=== PATIENT | male | born 1950 | race Caucasian/White ===

== ENCOUNTER 2018-02-23 14:00 | Inpatient (IN) | payer MEDICARE, BC ==
[~2018-02-23] VITALS: Ht 172.7 cm; Wt 89.8 kg
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
[2018-02-23] MEDS ORDERED: LIDOCAINE 1%-EPI 1:100,000 20 ML VIAL ONE (14:23)
[2018-02-23 14:25] LABS: BASOPHILS # (AUTO) 0.6 /CMM (0.0-0.2); BASOPHILS % (AUTO) 3.8 % (0.0-2.0); EOSINOPHILS % (AUTO) 0.6 % (0.0-6.0); HEMATOCRIT 29 % (39-51); HEMOGLOBIN 10.6 g/dL (13.5-17.5); LYMPHOCYTES # (AUTO) 1.4 /CMM (0.8-4.8); LYMPHOCYTES % (AUTO) 9.7 % (20.0-44.0); MEAN CORPUSCULAR HGB CONC 36 g/dl (31.0-36.0); MEAN CORPUSCULAR VOLUME 89 fL (80-96); MONOCYTES # (AUTO) 0.9 /CMM (0.1-1.30); MONOCYTES % (AUTO) 6.5 % (2.0-12.0); NEUTROPHILS # (AUTO) 11.5 /CMM (1.8-8.9); NEUTROPHILS % (AUTO) 79.4 % (43.0-81.0); PLATELET COUNT (AUTO) 208 /CMM (150-450); RDW COEFFICIENT OF VARIATION 15.4 (11.5-15.0); RED BLOOD CELL COUNT(AUTO) 3.31 MIL/uL (4.5-6.0); WHITE BLOOD COUNT (AUTO) 14.5 K/uL (4.3-11.0)
[2018-02-23] MEDS ORDERED: LIDOCAINE 1%-EPI 1:100,000 20 ML VIAL TP ONE (14:30)
[2018-02-23] MEDS ORDERED: IV NS 0.9% 1,000 ML BAG IV ONE (14:30)
[2018-02-23 14:32] LABS: CALCIUM, SERUM 9.9 mg/dL (8.5-10.1); CARBON DIOXIDE 24 mmol/L (21-32); CHLORIDE 103 mmol/L (98-107); CREATININE 5.1 mg/dL (0.6-1.3); GLUCOSE 105 mg/dL (74-106); SODIUM SERUM 139 mmol/L (136-145); UREA NITROGEN, BLOOD 46 mg/dL (7-18)
[2018-02-23 14:33] LABS: POTASSIUM 5.2 mmol/L (3.5-5.1)
[2018-02-23 14:38] LABS: ALANINE AMINOTRANSFERASE 21 U/L (12-78); ALBUMIN 3.2 g/dL (3.4-5.0); ALKALINE PHOSPHATASE 73 U/L (46-116); ASPARTATE AMINOTRANSFERASE 30 U/L (15-37); BILIRUBIN,DIRECT 0.1 mg/dL (0.0-0.2); BILIRUBIN,TOTAL 0.8 mg/dL (0.2-1.0); TOTAL PROTEIN, SERUM 8.1 g/dL (6.4-8.2)
[2018-02-23 14:40] LABS: TROPONIN I < 0.017 ng/mL (0.00-0.056)
--- NOTE | 2018-02-23 15:20 | NUR ---
URINE SAMPLE OBTAINED, SENT.
--- NOTE | 2018-02-23 15:30 | NUR ---
CALLED NURSING SUP. FOR TELE BED
[2018-02-23 15:49] LABS: APPEARANCE,URINE Clear (CLEAR); BILIRUBIN,URINE Negative (NEGATIVE); BLOOD, URINE Trace-lysed Ery/uL (NEGATIVE); COLOR,URINE Yellow (YELLOW); KETONES,URINE 15 (NEGATIVE); LEUKOCYTE ESTERASE ,URINE Negative (NEGATIVE); NITRITE, URINE Negative (NEGATIVE); PH,URINE 8.5 (5.0-8.0); PROTEIN,URINE 100 mg/dl (NEGATIVE); UGLUCOSE Negative (NEGATIVE)
[2018-02-23 16:05] LABS: BACTERIA,URINE Rare /HPF (None Seen); RBC,URINE 0-2 /HPF (0-2); SQUAMOUS EPITHELIAL CELL,UR Rare /HPF (None Seen); WBC,URINE 0-2 /HPF (0-3)
--- NOTE | 2018-02-23 16:22 | NUR ---
TELE 327-2 JACKLYN JOHANSEN ADMITTING
[2018-02-23] MEDS ORDERED: HYDROCODONE/APAP 5/325MG 1 EACH TABLET PO PRN (16:30)
[2018-02-23] MEDS ORDERED: MAGNESIUM HYDROXIDE 30 ML UDC PO PRN (16:30)
[2018-02-23] MEDS ORDERED: MAG HYDROX/AL HYDROX/SIMETH 30 ML UDC PO PRN (16:30)
[2018-02-23] MEDS ORDERED: Z GUARD REMEDY 2 OZ OINT TP PRN (16:30)
[2018-02-23] MEDS ORDERED: ONDANSETRON HCL/PF 4 MG/2 ML VIAL IVP PRN (16:30)
[2018-02-23] MEDS ORDERED: ZOLPIDEM TARTRATE 5 MG TABLET PO PRN (16:30)
[2018-02-23] MEDS ORDERED: ACETAMINOPHEN 325 MG TABLET PO PRN (16:30)
--- NOTE | 2018-02-23 16:43 | NUR ---
REPORT GIVEN TO HAILY GREEN FOR TELE 327-2.
[2018-02-23 17:00] VITALS: BP 135/69
--- NOTE | 2018-02-23 17:00 | NUR ---
CARDIAC REHAB NURSE NOTES ADMITTED PATIENT FROM ER REPORT GIVEN BY ARJUN ACCOMPANIED BY DAUGHTER. NO ACUTE DISTRESS NOTED. BREATHING UNLABORED. IV ACCESS PATENT AND INTACT. NEEDS ATTENDED. ORIENTED TO THE ROOM. SAFETY MEASURES IN PLACE. CALL LIGHT WITHIN REACH, SHOW HOW TO USE CALL LIGHT. WILL CONTINUE TO MONITOR ACCORDINGLY.
[2018-02-23 17:30] VITALS: BP 145/71
[2018-02-23] MEDS: IV NS 0.9% 1,000 ML IV PRN (18:18)
--- NOTE | 2018-02-23 19:00 | NUR ---
MS RN CLOSING NOTES PATIENT IN BED ALERT ORIENTED X4 , DAUGHTER AT BEDSIDE. NO ACUTE DISTRESS NOTED. NO SOB NOTED. IV ACCESS PATENT AND INTACT, NO REDNESS OR SWELLING NOTED.NEEDS ATTENDED AND ANTICIPATED. SAFETY MEASURES IN PLACE. CALL LIGHT WITHIN REACH. WILL COME PER DAUGHTER WILL BRING ADVANCE DIRECTIVE. ENDORSED TO NIGHT NURSE FOR CONTINUITY OF CARE.
--- NOTE | 2018-02-23 19:40 | NUR ---
JUKE BOX MECHANIC OPENING NOTES RECEIVED PATIENT IN BED , AWAKE ALERT AND ORIENTED X3 ABLE TO MAKE NEEDS KNOWN, RESPIRATIONS EVEN AND UNLABORED, DENIES ANY PAIN OR DISCOMFORT AT THIS TIME, ON MEDICAL INSURANCE VERIFIER SR70, LEFT ARM SHUNT WITH BRUIT PRESENT,IV SITE TO RIGHT AC INTACT AND PATENT, NO REDNESS NO INFILTRATION PRESENT, IVF RUNNING AT 75 ML/HR ORDERED, ORIENTED TO ROOM,STAFF,SAFETY MEASURES IN PLACE,CALL LIGHT KEPT WITHIN REACH.WILL CONTINUE TO MONITOR.
[2018-02-23 20:00] VITALS: BP_SYST 126; BP_SYST 146; BP_DIAS 62; BP_DIAS 78
--- NOTE | 2018-02-23 20:00 | NUR ---
WIRE BASKET MAKER NOTES NEURO CHECK DONE PATIENT ASSESSED LOC - FULL CONSCIOUSNESS,PERRLA -PUPILS REACTIVE, PATIENT SPEECH CLEAR, NO FACIAL ASYMMETRY, PATIENT REACTIVE TO LIGHT TOUCH, NO NUMBNESS, LOWER EXTREMITIES WNL , NO DEFICITS NOTES UPON ASSESSMENT.
--- NOTE | 2018-02-23 22:00 | NUR ---
NET LEAD DEVELOPER NOTES PER FAMILY AND PATIENT UTILIZED CPAP AT HOME DURING SLEEP , PER USES HIGH PRESSURE AT HOME. CALLED AND SPOKE TO DR. RUSH TO NOTIFY WITH NEW ORDERS CPAP 10 RATE 14. WILL CONTINUE TO MONITOR
--- NOTE | 2018-02-23 22:55 | NUR ---
RT NOTE PT UNABLE TO KENY CPAP. RN TOOK PT OFF CPAP. WILL CONTINUE TO MONITOR. Addendum: 02/23/18 at 2256 by CASSANDRA FAIRBANKS RT Amended: Links added.
--- NOTE | 2018-02-23 22:55 | NUR ---
MANAGER FAMILY NOTES PER PATIENT UNABLE TO TOLERATE CPAP PREFERS TO HAVE IT OFF AT THIS TIME, WILL CONTINUE TO MONITOR.
[2018-02-24] VITALS (9 sets, daily range): BP systolic 103–158; BP diastolic 51–84
[2018-02-24] MEDS: IV NS 0.9% 1,000 ML IV PRN (05:56)
--- NOTE | 2018-02-24 06:39 | NUR ---
DATAWAREHOUSE DEVELOPER CLOSING NOTES PATIENT IN BED , AWAKE ALERT AND ORIENTED X3 ABLE TO MAKE NEEDS KNOWN, RESPIRATIONS EVEN AND UNLABORED, DENIES ANY PAIN OR DISCOMFORT AT THIS TIME, ON MEAT PRODUCTS DEMONSTRATOR SR82, LEFT ARM SHUNT WITH BRUIT PRESENT,IV SITE TO RIGHT AC INTACT AND PATENT, NO REDNESS NO INFILTRATION PRESENT, IVF RUNNING AT 75 ML/HR ORDERED, PATIENT ASSISTED TO BATHROOM NOTED TO HAVE SMALL BOWEL MOVEMENT , ASSISTED TO BED, REMAINS COMFORTABLE ,SAFETY MEASURES IN PLACE,CALL LIGHT KEPT WITHIN REACH.WILL CONTINUE TO MONITOR AND ENDORSE TO NEXT SHIFT.ADVANCE DIRECTIVE IN CHART.
[2018-02-24 06:45] LABS: HEMATOCRIT 29 % (39-51); LYMPHOCYTES # (AUTO) 1.5 /CMM (0.8-4.8); LYMPHOCYTES % (AUTO) 12.4 % (20.0-44.0); MEAN CORPUSCULAR HGB CONC 34 g/dl (31.0-36.0); MEAN CORPUSCULAR VOLUME 90 fL (80-96); MONOCYTES % (AUTO) 8.5 % (2.0-12.0); NEUTROPHILS # (AUTO) 9.5 /CMM (1.8-8.9); NEUTROPHILS % (AUTO) 77.1 % (43.0-81.0); PLATELET COUNT (AUTO) 222 /CMM (150-450); RDW COEFFICIENT OF VARIATION 15.9 (11.5-15.0); RED BLOOD CELL COUNT(AUTO) 3.26 MIL/uL (4.5-6.0); WHITE BLOOD COUNT (AUTO) 12.3 K/uL (4.3-11.0)
[2018-02-24 06:54] LABS: BILIRUBIN,TOTAL 0.5 mg/dL (0.2-1.0); CALCIUM, SERUM 9.3 mg/dL (8.5-10.1); CREATININE 4.5 mg/dL (0.6-1.3); MAGNESIUM 2.3 mg/dL (1.8-2.4); POTASSIUM 3.7 mmol/L (3.5-5.1); TOTAL PROTEIN, SERUM 7.4 g/dL (6.4-8.2)
[2018-02-24 06:57] LABS: THYROID STIMULATING HORMONE 1.463 uIU/mL (0.358-3.74)
--- NOTE | 2018-02-24 07:31 | NUR ---
FORMS ANALYST NOTES PATIENT RECEIVED RESTING INSIDE ROOM, ACCOMPANIED BY . PATIENT AWAKE, ALERT AND ORIENTED, VERBALLY RESPONSIVE AND RESPONDS TO VERBAL AND TACTILE STIMULI. ABLE TO MAKE NEEDS KNOWN AND FOLLOW SIMPLE INSTRUCTIONS. BREATHING EVEN AND UNLABORED. DENIES ANY PAIN OR DISCOMFORT AT THIS TIME. NO CHANGES IN LOC NOTED AT THIS TIME. PATIENT SKIN DRY AND WARM TO TOUCH. IV SITE INTACT AND PATENT, NS RUNNING AT 75CC/HR. WILL CONTINUE TO MONITOR. BED LOCKED AND IN LOW POSOTION. BILATERAL UPPER SIDE RAILS UP AND LOCKED. CALL LIGHT WITHIN EASY REACH
[2018-02-24 09:55] LABS: OCCULT BLOOD STOOL NEGATIVE (NEGATIVE)
[2018-02-24] MEDS ORDERED: POLYETHYLENE GLYCOL 3350 17 GM POWD.PACK PO PRN (11:30)
[2018-02-24] MEDS ORDERED: IV NS 0.9% 500 ML IV ONE ×2 (11:30→18:00)
[2018-02-24] MEDS ORDERED: HYDR-4077 PO (12:18)
[2018-02-24] MEDS ORDERED: LORA10TA68 PO (12:18)
[2018-02-24] MEDS ORDERED: MULT-594 PO (12:18)
[2018-02-24] MEDS ORDERED: ASPI-1169 PO (12:18)
[2018-02-24] MEDS ORDERED: CLON0.1T PO (12:18)
[2018-02-24] MEDS ORDERED: ESCI20TA PO (12:18)
[2018-02-24] MEDS ORDERED: CLON0.2T PO (12:18)
[2018-02-24] MEDS ORDERED: ATOR40TA PO (12:18)
[2018-02-24] MEDS ORDERED: CARV25TA PO (12:18)
[2018-02-24] MEDS ORDERED: AMLO5TAB4 PO (12:18)
[2018-02-24] MEDS ORDERED: IV NS 0.9% 500 ML BAG IV ONE (17:30)
--- NOTE | 2018-02-24 18:23 | NUR ---
RAIL SPECIALIST NOTES PATIENT RESTING INSIDE ROOM. ACCOMPANIED BY . PATIENT AWAKE, ALERT AND ORIENTED, ABLE TO MAKE NEEDS KNOWN AND FOLLOW SIMPLE INSTRUCTIONS. VERBALLY RESPONSIVE AND RESPONDS TO VERBAL AND TACTILE STIMULI. PATIENT BREATHING EVEN AND UNLABORED. NO SOB OR ACUTE DISTRESS NOTED. IV SITE ON RIGHT AC INTACT AND PATENT, NO BLEEDING OR SWELLING NOTED. CONTINUE WITH TELEMETRY, NSR 86 BMP. PATIENT REMAINS AFEBRILE, SKIN DRY AND WARM TO TOUCH. NO CHANGES IN LOC NOTED. ORTHOSTATIC BP TO CHECK AFTER NS 100CC/HR X 500CC. WILL ENDORSE TO INCOMING SHIFT FOR STEFANO. BED LOCKED AND IN LOW POSITION. BILATERAL UPPER SIDE RAILS UP AND LOCKED. CALL LIGHT WITHIN EASY REACH.
--- NOTE | 2018-02-24 19:45 | NUR ---
RN OPENING TELE NOTES RECEIVED PATIENT IN BED, AWAKE ALERT AND ORIENTED X 4 ABLE TO MAKE NEEDS KNOWN, DENIES ANY PAIN OR DISCOMFORT AT THIS TIME, RESPIRATIONS EVEN AND UNLABORED. IV SITE TO RIGHT AC 20GAUGE INTACT AND PATENT, NO REDNESS NO INFILTRATION PRESENT, IVF FLUIDS RUNNING ORDERED, ORIENTED TO STAFF, CALL LIGHT KEPT WITHIN REACH, SAFETY MEASURES IN PLACE WILL CONTINUE TO MONITOR.
[2018-02-25] VITALS: BP 158/81
--- NOTE | 2018-02-25 02:39 | NUR ---
ADVANCE AGENT NOTES ORTHOSTATIC HYPOTENSION LAYING-158/81 HR 85 SIT-157/84 HR 86 STAND-142/63 90 CALLED TO NOTIFY VICTOR MANUEL SUNG OF WITH NO NEW ORDERS AT THIS TIME.
--- NOTE | 2018-02-25 02:41 | NUR ---
HL7 INTERFACE DEVELOPER NOTES NOTED RIGHT AC IV SITE NOT PROPERLY WORKING, REMOVED,NO REDNESS , NO PAIN TO SITE ,ASKED PATIENT IF I CAN REINSERT IV SITE AT THIS TIME, WOULD LIKE TO BE PUT IN THE AM. WILL CONT TO FOLLOW UP
[2018-02-25 04:00] VITALS: BP 159/79
--- NOTE | 2018-02-25 06:46 | NUR ---
MECHANICAL INSPECTOR NOTES OFFERED TO REINSERT IV SITE, PATIENT REFUSED STATED " I WANT TO GO HOME" , REFUSED INSERTION. WILL CONTINUE TO MONITOR AND ENDORSE TO NEXT SHIFT.
--- NOTE | 2018-02-25 07:00 | NUR ---
RN CLOSING TELE NOTES PATIENT IN BED, AWAKE ALERT AND ORIENTED X 4 ABLE TO MAKE NEEDS KNOWN, DENIES ANY PAIN OR DISCOMFORT AT THIS TIME, RESPIRATIONS EVEN AND UNLABORED. IV SITE TO RIGHT AC WAS REMOVED DUE TO NOT WORKING ATTEMPTED TO REINSERT PATIENT REFUSED, NO REDNESS NO INFILTRATION PRESENT TO SITE CALL LIGHT KEPT WITHIN REACH, SAFETY MEASURES IN PLACE WILL CONTINUE TO MONITOR AND ENDORSE TO NEXT SHIFT
--- NOTE | 2018-02-25 07:30 | NUR ---
RN NOTES PATIENT A/OX4, AT BEDSIDE, DENIES PAIN OR DISCOMFORT AT THIS TIME, BREATHING EVEN AND UNLABORED, NEEDS ATTENDED, SAFETY MEASURES IN PLACED, CALL LIGHT WITHIN REACH, WILL CONTINUE TO MONITOR.
[2018-02-25 07:33] LABS: BASOPHILS % (AUTO) 0.3 % (0.0-2.0); EOSINOPHILS % (AUTO) 3.3 % (0.0-6.0); HEMATOCRIT 32 % (39-51); HEMOGLOBIN 10.5 g/dL (13.5-17.5); LYMPHOCYTES # (AUTO) 1.2 /CMM (0.8-4.8); LYMPHOCYTES % (AUTO) 12.7 % (20.0-44.0); MEAN CORPUSCULAR HGB CONC 33 g/dl (31.0-36.0); MEAN CORPUSCULAR VOLUME 90 fL (80-96); MONOCYTES # (AUTO) 0.7 /CMM (0.1-1.30); MONOCYTES % (AUTO) 7.6 % (2.0-12.0); NEUTROPHILS % (AUTO) 76.1 % (43.0-81.0); PLATELET COUNT (AUTO) 221 /CMM (150-450); RDW COEFFICIENT OF VARIATION 15.9 (11.5-15.0); RED BLOOD CELL COUNT(AUTO) 3.52 MIL/uL (4.5-6.0); WHITE BLOOD COUNT (AUTO) 9.2 K/uL (4.3-11.0)
[2018-02-25 07:40] LABS: CALCIUM, SERUM 9.2 mg/dL (8.5-10.1); CREATININE 3.6 mg/dL (0.6-1.3); PHOSPHORUS 1.9 mg/dL (2.5-4.9); POTASSIUM 3.4 mmol/L (3.5-5.1)
[2018-02-25 08:00] VITALS: BP 167/86
[2018-02-25] MEDS ORDERED: ASPIRIN 81 MG TAB.CHEW PO SCH (09:00)
[2018-02-25] MEDS ORDERED: MULTIVITAMINS,THERAGRAN 1 UDTAB TABLET PO SCH (09:00)
[2018-02-25] MEDS ORDERED: ESCITALOPRAM OXALATE (10 MG) 10 MG TABLET PO SCH (09:00)
[2018-02-25] MEDS ORDERED: ATORVASTATIN 40 MG TABLET PO SCH (09:00)
[2018-02-25] MEDS ORDERED: LORATADINE 10 MG TABLET PO SCH (09:00)
[2018-02-25] MEDS ORDERED: CARVEDILOL 12.5 MG TABLET PO SCH (10:00)
--- NOTE | 2018-02-25 10:00 | NUR ---
RN NOTES PATIENT WENT TO RESTROOM WITH SLOW BUT STEADY GAIT, AND WAS ABLE TO MOVE HIS BOWELS.
[2018-02-25 10:08] VITALS: BP 167/86
[2018-02-25] MEDS ORDERED: CARVEDILOL 25 MG TABLET PO SCH (10:30)
[2018-02-25] MEDS ORDERED: CLON0.1T PO (10:41)
[2018-02-25] MEDS ORDERED: POTASSIUM CHLORIDE 20 MEQ TAB.PRT.SR PO ONE (11:00)
--- NOTE | 2018-02-25 11:18 | NUR ---
GLASS MOULD CLEANER PATIENT ALERT AND ORIENTED X4, PATIENT AND BOTH RECEIVED DISCHARGE INSTRUCTIONS, AND SIGNED DISCHARGE PAPERWORKS, LEFT EYEBROW INCISION CLEAN AND DRY, LEFT OPEN TO AIR. PATIENT HAS NO PERIPHERAL IV, SKIN ASSESSMENT DONE, PHOTOS TAKEN AND PLACED IN CHART, POTASSIUM REPLACED, BELONGINGS RECONCILED AND COMPLETE, PATIENT LEFT THE FACILITY IN NO DISTRESS, ACCOMPANIED BY VIA PRIVATE CAR.
--- NOTE | 2018-02-25 12:22 | NUR ---
RN NOTES RECEIVED A CALL FROM FISHER, PATIENT'S C. DIFF STOOL RESULT IS POSITIVE. JACKLYN TAI DIE CASTING MACHINE SETTER MADE AWARE AND PER DIE CASTING MACHINE SETTER, SHE WILL START PATIENT ON [place]. PATIENT'S PREFERRED PHARMACY IS [facility] [phone], GIVEN TO DIE CASTING MACHINE SETTER. PLACED A CALL TO PATIENT'S HOME PHONE, AND LEFT A VOICEMAIL TO CALL THE UNIT AGAIN. WILL ATTEMPT TO CALL AGAIN.
--- NOTE | 2018-02-25 12:30 | NUR ---
RN NOTES SPOKE WITH PATIENT'S , JASMINE, AND INFORMED OF C. DIFF RESULT, AND TREATMENT. ANTIBIOTIC PO WILL BE CALLED INTO THE PHARMACY BY JACKLYN TAI NP.
== END 2018-02-25 11:20 | disposition home or self-care (01) | DRG 371 ==
LOC: ER 14:01 → TELE 16:39 → MED 02-25 10:10
PROVIDERS: ADMIT Registered Nurse; ATTEND Registered Nurse
DX: A04.72 Enterocolitis due to Clostridium difficile, not specified as recurrent (principal); N18.6 End stage renal disease; I13.2 Hypertensive heart and chronic kidney disease with heart failure and with stage 5 chronic kidney disease, or end stage renal disease; E11.22 Type 2 diabetes mellitus with diabetic chronic kidney disease; E11.51 Type 2 diabetes mellitus with diabetic peripheral angiopathy without gangrene; M48.02 Spinal stenosis, cervical region; K91.1 Postgastric surgery syndromes; S06.9X9A Unspecified intracranial injury with loss of consciousness of unspecified duration, initial encounter; E86.0 Dehydration; W19.XXXA Unspecified fall, initial encounter; Z79.899 Other long term (current) drug therapy; I50.9 Heart failure, unspecified; Z86.73 Personal history of transient ischemic attack (TIA), and cerebral infarction without residual deficits; K59.00 Constipation, unspecified; Z98.84 Bariatric surgery status; S01.112A Laceration without foreign body of left eyelid and periocular area, initial encounter; Y92.9 Unspecified place or not applicable; N32.81 Overactive bladder; M47.812 Spondylosis without myelopathy or radiculopathy, cervical region; M77.9 Enthesopathy, unspecified; D64.9 Anemia, unspecified; Y83.9 Surgical procedure, unspecified as the cause of abnormal reaction of the patient, or of later complication, without mention of misadventure at the time of the procedure; Y82.9 Unspecified medical devices associated with adverse incidents; Y92.009 Unspecified place in unspecified non-institutional (private) residence as the place of occurrence of the external cause
CPT/HCPCS: 36415; 70450-TC; 71045-TC; 72125-TC; 80048-TC; 80053-TC; 80061-TC; 80076-TC; 81000-TC; 82272-TC; 82728-TC; 83540-TC; 83735-TC; 84100-TC; 84443-TC; 84484-TC; 85025-TC; 85730-TC; 87081-TC; 93307-TC; 93880-TC; A4606; A6402; J3490; J7030; J7040; Z7610